=== PATIENT | male | born 1955 | race Caucasian/White ===

== ENCOUNTER → 2017-12-25 | Day surgery (SDC) | payer BC ==
[2017-12-20 09:32] LABS: BASOPHILS % 0.2 % (0.0-1.0); EOSINOPHILS # (AUTO) 0.2 (0.0-0.4); EOSINOPHILS % 4.1 % (0.0-6.0); HEMATOCRIT 37.7 % (38.2-49.6); HEMOGLOBIN 13.1 g/dL (14.0-18.0); LYMPHOCYTES # (AUTO) 1.8 (1.0-3.2); LYMPHOCYTES % 30.7 % (18.0-39.1); MEAN CORPUSCULAR HEMOGLOBIN 30.4 pg (28-32); MEAN CORPUSCULAR HGB CONC 34.7 g/dL (31-35); MEAN CORPUSCULAR VOLUME 87.5 fL (81-99); MONOCYTES # (AUTO) 0.7 (0.2-0.8); MONOCYTES % 11.6 % (4.4-11.3); NEUTROPHILS # (AUTO) 3.1 (2.1-6.9); NEUTROPHILS % 53.2 % (38.7-80.0); PLATELET COUNT 245 x10e3/uL (140-360); RED BLOOD COUNT 4.31 x10e6/uL (4.3-5.7); RED CELL DISTRIBUTION WIDTH 12.6 % (11.7-14.4)
[~2017-12-25] MED LIST: ASPIR 8181 MG PO; ATORVASTATIN CA20 MG PO; CARVEDILOL12.5 MG PO; DECARA25000 UNIT PO; EPHEDRINE SULFATE INJ 50 MG/10 ML SYR ONE; FENTANYL CITRATE/PF 100MCG/2 ML INJ ONE; LISINOPRIL-HCT1 EACH PO; LORAZEPAM2 MG PO; METFORMIN HCL500 MG PO; MIDAZOLAM HCL 2 MG/2 ML VIAL ONE; PHENYLEPHRINE HCL 1% 10 MG/ML VIAL ONE; PROAIR HFA INH8.5 GM INH; PROPOFOL IV EMULSION 10 MG/ML 50 ML VIAL ONE; RANEXA500 MG PO; TRAZODONE HCL150 MG PO
--- OUTSIDE RECORDS SUMMARY | 2017-12-25 06:02 | XMS REPORT | Clinical Summary ---
Author Author [facility] Organization [facility] Address Unknown Phone Unavailable Care Team Providers Care Aircraft Worker Name Role Phone Francia Dennis MD PCP Unavailable Allergies No Known Allergies Current Medications Prescription Sig. Disp. Refills Start End Date Status Date traZODone (DESYREL) 150 Take 150 mg by mouth Active MG tablet nightly. LORAZepam (ATIVAN) 2 MG Take 2 mg by mouth every Active tablet 6 (six) hours as needed for anxiety. nitroglycerin (NITROSTAT) Place 0.4 mg under the Active 0.4 MG SL tablet tongue every 5 (five) minutes as needed for chest pain. aspirin 81 mg chewable Chew 1 tablet every day Active tablet by oral route. lisinopril-hydrochlorothi Take 1 tablet every day Active azide by oral route. (PRINZIDE,ZESTORETIC) 20-12.5 mg per tablet albuterol (PROAIR HFA) 90 Inhale 2 puffs every 4 Active mcg/actuation inhaler hours by inhalation route. carvedilol (COREG) 12.5 Take 1 tablet twice a day Active MG tablet by oral route. metFORMIN (GLUCOPHAGE) Take 1 tablet twice a day Active 500 MG tablet by oral route. atorvastatin (LIPITOR) 20 TAKE 1 TABLET BY MOUTH 90 tablet 3 10/16/19 Active MG tablet EVERY DAY 17 CHANTIX STARTING MONTH 02/09/20 Active BOX 0.5 mg (11)- 1 mg 17 (42) tablet cholecalciferol, vitamin Take 50,000 Units by Active D3, 50,000 unit capsule mouth 2 (two) times a week. lisinopril Take 20 mg by mouth 03/05/20 Discontin (PRINIVIL,ZESTRIL) 20 MG daily. 17 ued tablet HYDROcodone-acetaminophen Take 1 tablet by mouth 03/05/20 Discontin (NORCO 10-325) 10-325 mg every 6 (six) hours as 17 ued per tablet needed for moderate pain. albuterol (PROVENTIL Inhale 2 puffs every 6 03/05/20 Discontin HFA;VENTOLIN HFA) 90 (six) hours as needed for 17 ued mcg/actuation inhaler wheezing. LORAZepam (ATIVAN) 0.5 MG Take 1 tablet twice a day 03/05/20 Discontin tablet by oral route. 17 ued fenofibrate micronized Take 1 capsule every day 03/05/20 Discontin (ANTARA) 130 MG capsule by oral route. 17 ued acetaminophen-codeine 06/26/20 03/05/20 Discontin (TYLENOL #3) 300-30 mg 16 17 ued per tablet tamsulosin (FLOMAX) 0.4 TAKE ONE CAPSULE BY MOUTH 25 capsule 0 05/08/20 Discontin mg capsule,extended EVERY DAY 16 17 ued release 24hrIndications: Left ureteral stone sulfamethoxazole-trimetho Take 1 tablet by mouth 1 tablet 0 02/16/20 02/16/20 prim (BACTRIM) 400-80 mg once for 1 dose. 17 17 per tablet cephalexin (KEFLEX) 500 Take 1 capsule (500 mg 14 capsule 0 05/04/20 05/04/20 Discontin MG capsule total) by mouth 2 (two) 17 17 ued times a day for 7 days. cephalexin (KEFLEX) 500 Take 1 capsule (500 mg 14 capsule 0 05/04/20 05/04/20 Discontin MG capsule total) by mouth 2 (two) 17 17 ued times a day for 7 days. cephalexin (KEFLEX) 500 Take 1 capsule (500 mg 10 capsule 0 05/04/20 05/09/20 MG capsule total) by mouth 2 (two) 17 17 times a day for 5 days. cephalexin (KEFLEX) 500 Take 1 capsule (500 mg 10 capsule 0 05/04/20 05/08/20 Discontin MG capsule total) by mouth 2 (two) 17 17 ued times a day for 5 days. acetaminophen-codeine Take 1 tablet by mouth 30 tablet 0 05/08/20 (TYLENOL WITH CODEINE #3) every 4 (four) hours as 17 17 300-30 mg per tablet needed for moderate pain for up to 5 days. docusate sodium (COLACE) Take 1 capsule (100 mg 60 capsule 0 05/08/20 06/07/20 100 MG capsule total) by mouth 2 (two) 17 17 times a day for 30 days. sulfamethoxazole-trimetho Take 1 tablet by mouth 2 10 tablet 0 05/13/20 prim (BACTRIM DS) 800-160 (two) times a day for 5 17 17 mg per tablet days. traMADol (ULTRAM) 50 mg Take 1 tablet (50 mg 30 tablet 0 05/09/20 Discontin tablet total) by mouth every 6 17 17 ued (six) hours as needed for moderate pain for up to 5 days. traMADol (ULTRAM) 50 mg Take 1 tablet (50 mg 30 tablet 0 05/09/20 tablet total) by mouth every 6 17 17 (six) hours as needed for moderate pain for up to 5 days. docusate sodium (COLACE) Take 1 capsule (100 mg 60 capsule 0 07/25/20 08/24/19 100 MG capsule total) by mouth 2 (two) 17 18 times a day for 30 days. acetaminophen-codeine Take 1-2 tablets by mouth 30 tablet 0 07/25/20 08/08/20 (TYLENOL WITH CODEINE #3) every 6 (six) hours as 17 17 300-30 mg per tablet needed for moderate pain for up to 14 days. sulfamethoxazole-trimetho Take 1 tablet by mouth 2 10 tablet 0 07/25/20 Discontin prim (BACTRIM DS) 800-160 (two) times a day for 5 17 17 ued mg per tablet days. ciprofloxacin (CIPRO) 500 Take 1 tablet (500 mg 10 tablet 0 07/25/20 07/25/20 Discontin MG tablet total) by mouth 2 (two) 17 17 ued times a day for 5 days. acetaminophen-codeine Take 1 tablet by mouth 20 tablet 0 07/25/20 (TYLENOL WITH CODEINE #3) every 4 (four) hours as 17 17 300-30 mg per tablet needed for moderate pain for up to 20 doses. ciprofloxacin (CIPRO) 500 Take 1 tablet (500 mg 14 tablet 0 07/25/20 08/01/20 MG tablet total) by mouth 2 (two) 17 17 times a day for 7 days. Active Problems Problem Noted Date Erectile dysfunction 07/24/2017 SYDNIE (stress urinary incontinence), male 05/08/2017 Prostate cancer 01/04/2017 SYDNIE (stress urinary incontinence), male 01/04/2017 Erectile dysfunction following radical prostatectomy 01/04/2017 Left ureteral stone 06/12/2016 Encounters Date Type Specialty Care Team Description 07/30/2017 Telephone Urology Arsh Marin MD 07/24/2017 [facility] Arsh Marin MD - Encounter 07/25/2017 07/24/2017 Procedure Pass Urology 07/24/2017 Surgery UrologArsh Mtz MD REMOVAL AND REINSERTION, PENILE PROSTHESIS, INFLATABLE 07/23/2017 Anesthesia Urology Jose F Horton MD Event 06/21/2017 Orders Only Urology Natalie Nieto MA Malfunction of penile prosthesis, initial encounter (Primary Dx) 06/07/2017 Office Visit Urology Arsh Marin MD Prostate cancer ( Primary Dx); Erectile dysfunction following radical prostatectomy 06/06/2017 Office Visit Semaj Vela MD SYDNIE (stress urinary incontinence), male (Primary Dx) 05/08/2017 [facility] Semaj Hays MD Female genuine stress - Encounter incontinence 05/09/2017 05/08/2017 Procedure Pass Urology 05/08/2017 Surgery Semaj Vela MD REMOVAL, ARTIFICIAL SPHINCTER AND REPLACE 05/04/2017 Orders Only Urology Sylvie Berman MD 05/04/2017 Telephone Semaj Vela MD 05/04/2017 Orders Only Semaj Vela MD 05/01/2017 Transcribe Semaj Vela MD Female stress Orders incontinence (Primary Dx) 03/26/2017 Orders Only Semaj Vela MD 03/06/2017 Anesthesia Urology Mary Kate Moreno Event JOSLYN King 02/15/2017 Procedure visit Semaj Vela MD SYDNIE (stress urinary incontinence), male 02/07/2017 Office Visit Semaj Vela MD SYDNIE (stress urinary incontinence), male (Primary Dx) 01/25/2017 Lab Lab Genaro Rasheed MD Prostate cancer 01/04/2017 Office Visit Urology Genaro Rasheed MD Erectile dysfunction following radical prostatectomy (Primary Dx); SYDNIE (stress urinary incontinence), male; Prostate cancer after 12/24/2016 Immunizations Name Dates Previously Given Next Due FLUCELVAX QUAD PF (0.5mL 05/09/2017 syringe) Family History Medical History Relation Name Comments Breast cancer Father Cancer Father Diabetes Father Gallbladder disease Father Heart disease Father Leukemia Father Anxiety disorder Mother Heart disease Mother Hypertension Mother Relation Name Status Comments Father Alive Mother Alive Social History Tobacco Use Types Packs/Day Years Used Date Former Smoker Cigarettes 47 Quit: 01/2017 Smokeless Tobacco: Never Used Sex Assigned at Date Recorded Not on file Last Filed Vital Signs Vital Sign Reading Time Taken Blood Pressure 109/58 07/25/2017 7:30 AM [facility] Pulse 82 07/25/2017 7:30 AM [facility] Temperature 37.1 C (98.8 F) 07/25/2017 7:30 AM [facility] Respiratory Rate 21 07/25/2017 7:30 AM [facility] Oxygen Saturation 94% 07/25/2017 7:30 AM [facility] Inhaled Oxygen - - Concentration Weight 90.5 kg (199 lb 7 oz) 07/24/2017 6:15 AM [facility] Height 182.9 cm (6') 07/24/2017 6:15 AM [facility] Body Mass Index 27.05 07/24/2017 6:15 AM [facility] Plan of Treatment Health Maintenance Due Date Last Done Comments COLONOSCOPY 2007 SHINGRIX VACCINE (#1) 2007 ZOSTER VACCINE 2017 INFLUENZA VACCINE 03/20/2018 05/09/2017 Implants Implanted Type Area Creative Services Intern Device Expiration Model / Identifier Date Serial / Lot Kit Accy Artfcl Urny Spnctr W/ Iz Neurosurgi N/A: N/A SWEDISH 2021 [id number] Ams 800 - [id number] [employer] SYSTEMS / Implanted: 05/08/2017 (Quantity not Implants INC / on file) [id number] Package Deactivation - [id number] Urological N/A: N/A SWEDISH 2019 [id number] / Implanted: 05/08/2017 (Quantity not Implants MEDICAL SYSTEMS / on file) or Sets INC [id number] Pump Cntrl W/ Inhibizone Urny Sys Urological N/A: N/A SWEDISH 2017 [id number] / Ams 800 - [id number] Implants MEDICAL SYSTEMS / Implanted: 05/08/2017 (Quantity not or Sets INC [id number] on file) Balloon Press Regltng Ams 800 Urny Urological N/A: N/A SWEDISH 04/06 [id number] / Cntrl Sys 61-70cm - [id number] Implants MEDICAL SYSTEMS / Implanted: 05/08/2017 (Quantity not or Sets INC [id number] on file) Prosthesis Urny Ams 800 Belt Spnctr Urological N/A: N/A SWEDISH [id number] / W/ Inhibizone Fgs 4cm - [id number] Implants MEDICAL SYSTEMS / Implanted: 05/08/2017 (Quantity not or Sets INC [id number] on file) Kit Accy Infltbl Penile Ams 700 - Urological SWEDISH 06/06/2022 [id number] / [id number] Implants MEDICAL SYSTEMS / Implanted: Qty: 1 on 07/24/2017 by or Sets INC [id number] Arsh Marin MD Implant Penile Rsvr Ams 700 Ms Urological SWEDISH 03/19/2019 [id number] / Prcnctd W/ Iz 65ml - [id number] Implants MEDICAL SYSTEMS / Implanted: Qty: 1 on 07/24/2017 by or Sets INC [id number] Arsh Marin MD Implant Penile Ams 700 Cx Ms Urological SWEDISH 05/21/2019 [id number] / Prcnctd Pnscrtl Aprch 18cm - Implants MEDICAL SYSTEMS / [id number] or Sets INC [id number] Implanted: Qty: 1 on 07/24/2017 by Arsh Marin MD Implant Penile Ams Spectra Cnclable Urological SWEDISH 11/24/2021 [id number] / Rte 2cm - [id number] Implants MEDICAL SYSTEMS / Implanted: Qty: 1 on 07/24/2017 by or Sets INC [id number] Arsh Marin MD Procedures Procedure Name Priority Date/Time Associated Diagnosis Comments ANESTHESIA INTUBATION Routine 07/24/2017 10:05 AM [facility] Procedure Note - Alem Ferraro CRNA - 07/24/2017 10:05 AM [facility] Airway Performed by: ALEM FERRARO Authorized by: JOSE F HORTON REMOVAL AND REINSERTION, 07/24/2017 Mechanical complication PENILE PROSTHESIS, 7:30 AM [facility] due to prosthetic INFLATABLE reconstruction of vas deferens, initial encounter Special Needs POSSIBLE EXTENDED RECOVERY PA AN ELECTIVE Routine 05/08/2017 ENDOTRACHEAL AIRWAY 8:19 AM CDT Procedure Note - Dulce Dalton, PROPOSAL DIRECTOR - 05/08/2017 8:16 AM CDT Airway Date/Time: 05/08/2017 7:53 AM Performed by: DULCE DALTON Authorized by: JOSE F HORTON Location: OR Urgency: Elective Difficult Airway: No Resident/C RNA: DULCE DALTON Preoxygena nusrat with 100% O2: Yes C-spine Precaution s Maintained Throughout : Yes Mask Ventilatio n: Easy mask (oral airway) Final Airway Type: Endotrache al airway Final Endotrache al Airway: ETT Technique Used: Direct laryngosco py Devices/Me thods Used in Placement: Intubatin g stylet Blade Type: De La Cruz Laryngosco pe Blade/Vide olaryngosc ope Blade Size: 2 ETT Size (mm): 8.0 Measured from: Teeth ETT to Teeth (cm): 23 Placement Verified by: CO2 detection, direct visualizat ion and equal breath sounds Laryngosco pic view: Grade IIb - view of arytenoids or posterior of glottis only Rapid Sequence Induction (RSI): No Modified RSI: No Number of Attempts at Approach: 1 Atraumati c, lips and teeth intact and unchanged REMOVAL, ARTIFICIAL 05/08/2017 Female genuine stress SPHINCTER AND REPLACE 7:30 AM CDT incontinence Case Notes ROSAS R/S 02/26/17 TLM, @1026 LOULOU R/S FROM 04/24 TO 05/08- 7TW FL URETHROGRAM URO Routine 02/15/2017 SYDNIE (stress urinary 3:55 PM CDT incontinence), male UROFLOWMETRY COMPLEX Routine 02/15/2017 SYDNIE (stress urinary (F-P-F) 3:55 PM CDT incontinence), male VPS INTRA ABD COMPLEX Routine 02/15/2017 SYDNIE (stress urinary (LPP) 3:55 PM CDT incontinence), male VPS INTERMED Routine 02/15/2017 SYDNIE (stress urinary (FR,EMG,PVES-PABD: PDET) 3:55 PM CDT incontinence), male CYSTOMETROGRAM COMPLEX Routine 02/15/2017 SYDNIE (stress urinary (CMG-PVES) 3:55 PM CDT incontinence), male after 12/24/2016 Results * POC glucose (07/25/2017 7:28 AM) Only the most recent of 11 results within the time period is included. Component Value Ref Range POC glucose 114 (H) 65 - 99 mg/dL Comment: [facility] Notified RN Meter ID: [id number] Idea Man: Vasu Dozier Specimen Performing Laboratory [facility] DEPARTMENT OF PATHOLOGY AND GENOMIC MEDICINE [address] [place] [id number] * Estimated GFR (07/24/2017 6:24 AM) Component Value Ref Range GFR Non Af Amer 86 mL/min/1.73 m2 GFR Af Amer >90 mL/min/1.73 m2 Comment: Chronic kidney disease: <60 mL/min/1.73m2 Kidney failure: <15 mL/min/1.73m2 The estimated GFR is calculated from the IDMS-traceable Modification of Diet in Renal Disease Equation. The accuracy of the calculation is poor when the creatinine is normal. Calculated values >90 mL/min/1.73m2 are not reported. This equation has not been validated in children (<18 years), women, the elderly (>70 years), or ethnic groups other than Caucasians and Americans. Specimen Performing Laboratory Plasma specimen [facility] DEPARTMENT OF PATHOLOGY AND GENOMIC MEDICINE [address] [place] [phone] * Comprehensive metabolic panel (07/24/2017 6:24 AM) Component Value Ref Range Sodium 141 135 - 148 mEq/L Potassium 4.0 3.5 - 5.0 mEq/L Chloride 100 98 - 112 mEq/L CO2 30 24 - 31 mEq/L Anion gap 11 7 - 15 mEq/L Comment: Starting from November , anion gap calculation no longer incorporates potassium. Please note the change. BUN 13 8 - 23 mg/dL Creatinine 0.9 0.7 - 1.2 mg/dL Glucose 109 (H) 65 - 99 mg/dL Calcium 9.2 8.8 - 10.2 mg/dL Protein 7.3 6.3 - 8.3 g/dL Comment: 4.6-7.0 g/dL 1 week 4.4-7.6 g/dL 7 months-1year 5.1-7.3 g/dL 1-2 years 5.6-7.5 g/dL >3 years 6.0-8.0 g/dL 18-150 6.3-8.3 g/dL Albumin 3.8 3.5 - 5.0 g/dL A/G ratio 1.1 0.7 - 3.8 Alkaline phosphatase 91 40 - 129 U/L AST 22 10 - 50 U/L ALT 27 5 - 50 U/L Total bilirubin 0.4 0.0 - 1.2 mg/dL Specimen Performing Laboratory Plasma specimen [facility] DEPARTMENT OF PATHOLOGY AND GENOMIC MEDICINE [address] [place] [phone] * Urinalysis screen and microscopy, with reflex to culture (07/24/2017 6:05 AM) Component Value Ref Range Specimen site Random void Color, UA Yellow Appearance, UA Clear Specific gravity, UA 1.023 1.001 - 1.035 pH, UA 5.0 5.0 - 8.5 Protein, UA Negative Negative Glucose, UA Negative Negative Ketones, UA Negative Negative Bilirubin, UA Negative Negative Blood, UA Negative Negative Nitrite, UA Negative Negative Urobilinogen, UA <2.0 <2.0 Leukocyte esterase, UA Negative Negative Epithelial cells, UA <1 /HPF WBC, UA 3 (H) 0 - 1 /HPF RBC, UA 1 0 - 1 /HPF Bacteria, UA None seen None seen Yeast, UA None seen Yeast with pseudohyphae, None seen UA Hyaline casts, UA 3 /LPF Specimen Performing Laboratory Urine [facility] DEPARTMENT OF PATHOLOGY AND [facility] MEDICINE [address] [place] [phone] * CBC with platelet and differential (07/24/2017 6:05 AM) Component Value Ref Range WBC 6.33 4.50 - 11.00 k/uL RBC 4.44 4.40 - 6.00 m/uL HGB 13.5 (L) 14.0 - 18.0 g/dL HCT 39.0 (L) 41.0 - 51.0 % MCV 87.8 82.0 - 100.0 fL MCH 30.4 27.0 - 34.0 pg MCHC 34.6 31.0 - 37.0 g/dL RDW - SD 40.4 37.0 - 55.0 fL MPV 10.1 8.8 - 13.2 fL Platelet count 200 150 - 400 k/uL Nucleated RBC 0.00 /100 WBC Neutrophils 50.2 39.0 - 69.0 % Lymphocytes 34.4 25.0 - 45.0 % Monocytes 11.2 (H) 0.0 - 10.0 % Eosinophils 3.6 0.0 - 5.0 % Basophils 0.3 0.0 - 1.0 % Immature granulocytes 0.3Comment: "Immature granulocytes" 0.0 - 1.0 % (promyelocytes, myelocytes, metamyelocytes) Specimen Performing Laboratory [facility] DEPARTMENT OF PATHOLOGY AND GENOMIC MEDICINE [address] [place], [place] [id number] * Urine culture (07/24/2017 6:05 AM) Only the most recent of 2 results within the time period is included. Component Value Ref Range Urine culture SEE COMMENTComment: Bacteriuria screen negative. Specimen Performing Laboratory [facility] DEPARTMENT OF PATHOLOGY AND [place] [id number] * PT and PTT (07/09/2017 11:28 AM) Component Value Ref Range PTT 25 22 - 34 sec Comment: This test has not been validated for monitoring unfractionated heparin therapy. For testing that is validated for this type of therapy, please refer to the Heparin Anti-Xa assay (test code 09016). For additional information, please refer to http://education.[employer].Vigilent/faq/CEG430 (This link is being provided for informational/educational purposes only.) INR 1.0 Comment: Reference Range 0.9-1.1 Moderate-intensity Warfarin Therapy 2.0-3.0 Higher-intensity Warfarin Therapy 3.0-4.0 Prothrombin time 10.4 9.0 - 11.5 sec Specimen Performing Laboratory [facility] Narrative FASTING:YES FASTING: YES * POC urinalysis dipstick (06/06/2017 9:10 AM) Only the most recent of 2 results within the time period is included. Component Value Ref Range Color urine, POC Yellow Clarity urine, POC Clear Glucose urine, POC Negative Negative Bilirubin urine, POC Negative Negative Ketones urine, POC Negative Negative Specific gravity urine, 1.010 1.005 - 1.030 POC Blood urine, POC Negative Negative pH urine, POC 6.5 5.0, 5.5, 6.0, 6.5, 7.0, 7.5, 8.0, 8.5 Protein urine, POC Negative Negative Urobilinogen urine, POC <2.0 <2.0 Nitrite urine, POC Negative Negative Leukocyte esterase urine, Negative Negative POC Specimen Performing Laboratory Urine * Surgical pathology request (05/08/2017 12:05 PM) Component Value Ref Range Surgical pathology report See link below for PDF Lab Report Specimen Performing Laboratory [facility] DEPARTMENT OF PATHOLOGY AND GENOMIC MEDICINE [address] [place] [phone] * Urinalysis, routine with microscopic examination on positives (03/26/2017 2: 11 PM) Component Value Ref Range Specific gravity, urine 1.017 1.005 - 1.030 pH, urine 6.0 5.0 - 7.5 Color, UA Yellow Yellow Appearance Clear Clear WBC esterase, urine Trace (A) Negative Protein, UA Negative Negative/Trace Glucose, urine Negative Negative Ketones, UA Negative Negative Occult blood, urine Negative Negative Bilirubin, UA Negative Negative Urobilinogen, UA 0.2 0.2 - 1.0 mg/dL Nitrite, UA Negative Negative Microscopic examination See below:Comment: Microscopic was indicated and was performed. Specimen Performing Laboratory [facility] Narrative Performed at:[address] [place], [place] [id number] Machine Paint Mixer: Doyle Dick MD, Phone:[phone] * Microscopic Examination (03/26/2017 2:11 PM) Component Value Ref Range WBC, UA 0-5 0 - 5 /hpf RBC, UA 0-2 0 - 2 /hpf Epithelial cells (non 0-10 0 - 10 /hpf renal) Mucus, UA Present Not Estab. Bacteria, UA None seen None seen/Few Specimen Performing Laboratory [facility] Narrative Performed at:[address] [place], [place] [id number] Machine Paint Mixer: Doyle Dick MD, Phone:[phone] * FL URETHROGRAM URO (02/15/2017 3:55 PM) * Uroflowmetery complex (F-P-F) (02/15/2017 3:55 PM) * VPS intra abd complex (LPP) (02/15/2017 3:55 PM) * VPS intermed (FR, EMG, Pves-Pabd: pdet) (02/15/2017 3:55 PM) * Prostate specific antigen (01/25/2017 7:18 AM) Component Value Ref Range PSA <0.1 < OR=4.0 ng/mL Comment: The total PSA value from this assay system is standardized against the WHO standard. The test result will be approximately 20% lower when compared to the equimolar-standardized total PSA (Ricardo Pratt). Comparison of serial PSA results should be interpreted with this fact in mind. This test was performed using the Siemens chemiluminescent method. Values obtained from different assay methods cannot be used interchangeably. PSA levels, regardless of value, should not be interpreted as absolute evidence of the presence or absence of disease. Specimen Performing Laboratory Blood [facility] after 12/24/2016 Insurance Payer Benefit Subscriber ID Type Phone Address Plan / Group BCBS BCBS xxxxxxxxxxxxxxx PPO CHOICE PPO/NIRMAL MADRID PPO
== END | disposition home or self-care (01) ==
LOC: OR 05:59
PROVIDERS: ATTEND Internal Medicine Gastroenterology
DX: Z12.11 Encounter for screening for malignant neoplasm of colon (principal); D12.2 Benign neoplasm of ascending colon; D12.4 Benign neoplasm of descending colon; D12.3 Benign neoplasm of transverse colon; K29.00 Acute gastritis without bleeding; K29.80 Duodenitis without bleeding; K57.30 Diverticulosis of large intestine without perforation or abscess without bleeding; K44.9 Diaphragmatic hernia without obstruction or gangrene; K64.8 Other hemorrhoids; K59.00 Constipation, unspecified; I25.10 Atherosclerotic heart disease of native coronary artery without angina pectoris; I10 Essential (primary) hypertension; E78.5 Hyperlipidemia, unspecified; J44.9 Chronic obstructive pulmonary disease, unspecified; E11.9 Type 2 diabetes mellitus without complications; F41.9 Anxiety disorder, unspecified; G47.33 Obstructive sleep apnea (adult) (pediatric); I25.2 Old myocardial infarction; Z01.810 Encounter for preprocedural cardiovascular examination; Z01.812 Encounter for preprocedural laboratory examination; Z79.82 Long term (current) use of aspirin; Z79.84 Long term (current) use of oral hypoglycemic drugs; Z85.46 Personal history of malignant neoplasm of prostate; Z95.810 Presence of automatic (implantable) cardiac defibrillator; Z90.79 Acquired absence of other genital organ(s); Z96.0 Presence of urogenital implants; Z95.5 Presence of coronary angioplasty implant and graft; Z86.19 Personal history of other infectious and parasitic diseases; Z80.0 Family history of malignant neoplasm of digestive organs
CPT/HCPCS: 36415 ×2; 43239; 45384; 82948; 85025; 93005; J2250; J2370

== ENCOUNTER → 2019-03-04 | Day surgery (SDC) | payer BC ==
[2019-02-28 12:35] LABS: INR 0.84; PARTIAL THROMBOPLASTIN TIME 27.2 seconds (23.8-35.5)
[2019-02-28 12:41] LABS: BASOPHILS % 0.2 % (0.0-1.0); EOSINOPHILS # (AUTO) 0.3 (0.0-0.4); EOSINOPHILS % 4.8 % (0.0-6.0); HEMATOCRIT 37.7 % (38.2-49.6); HEMOGLOBIN 12.9 g/dL (14.0-18.0); LYMPHOCYTES # (AUTO) 1.6 (1.0-3.2); MEAN CORPUSCULAR HEMOGLOBIN 30.6 pg (28-32); MEAN CORPUSCULAR HGB CONC 34.2 g/dL (31-35); MEAN CORPUSCULAR VOLUME 89.3 fL (81-99); MONOCYTES # (AUTO) 0.6 (0.2-0.8); MONOCYTES % 10.9 % (4.4-11.3); NEUTROPHILS # (AUTO) 3.1 (2.1-6.9); NEUTROPHILS % 54.9 % (38.7-80.0); PLATELET COUNT 189 x10e3/uL (140-360); RED BLOOD COUNT 4.22 x10e6/uL (4.3-5.7); RED CELL DISTRIBUTION WIDTH 12.7 % (11.7-14.4)
[2019-02-28 13:10] LABS: ALANINE AMINOTRANSFERASE 24 IU/L (0-55); ALBUMIN 3.5 g/dL (3.5-5.0); ALBUMIN/GLOBULIN RATIO 1.2 (0.8-2.0); ALKALINE PHOSPHATASE 94 IU/L (40-150); BLOOD UREA NITROGEN 14 mg/dL (7-26); BUN/CREATININE RATIO 16 (6-25); CALCIUM 9.3 mg/dL (8.4-10.2); CARBON DIOXIDE 26 mmol/L (22-29); CHLORIDE 105 mmol/L (98-107); CREATININE, SERUM 0.85 mg/dL (0.72-1.25); EST GLOMERULAR FILTRATION RATE > 60 ML/MIN (60-); GLUCOSE 108 mg/dL (74-118); SODIUM 141 mmol/L (136-145)
[~2019-03-04] MED LIST changes: +BEVESPI INH; +BUPROPION HCL75 MG PO; +CLONAZEPAM1 MG PO; -EPHEDRINE SULFATE INJ 50 MG/10 ML SYR ONE; +ISOSORBIDE MONO30 MG PO; +NEXIUM40 MG PO; -PHENYLEPHRINE HCL 1% 10 MG/ML VIAL ONE
--- OUTSIDE RECORDS SUMMARY | 2019-03-04 07:14 | XMS REPORT | Clinical Summary ---
Author Author [facility] Organization [facility] Address Unknown Phone Unavailable Care Team Providers Care Paratransit Operator Name Role Phone Sherry Dennis MD PCP Unavailable Allergies No Known Allergies Medications End Date Status Medication Sig Dispensed Refills Start Date Active traZODone (DESYREL) 150 Take 150 mg 0 MG tablet by mouth nightly. Active LORAZepam (ATIVAN) 2 MG Take 2 mg by 0 tablet mouth every 6 (six) hours as needed for anxiety. Active nitroglycerin (NITROSTAT) Place 0.4 mg 0 0.4 MG SL tablet under the tongue every 5 (five) minutes as needed for chest pain. Active aspirin 81 mg chewable Chew 1 tablet 0 tablet every day by oral route. Active lisinopril-hydrochlorothi Take 1 tablet 0 azide every day by (PRINZIDE,ZESTORETIC) oral route. 20-12.5 mg per tablet Active albuterol (PROAIR HFA) 90 Inhale 2 0 mcg/actuation inhaler puffs every 4 hours by inhalation route. Active carvedilol (COREG) 12.5 Take 1 tablet 0 MG tablet twice a day by oral route. Active metFORMIN (GLUCOPHAGE) Take 1 tablet 0 500 MG tablet twice a day by oral route. Active atorvastatin (LIPITOR) 20 TAKE 1 TABLET 90 tablet 3 MG tablet BY MOUTH 7 EVERY DAY Active CHANTIX STARTING MONTH 0 BOX 0.5 mg (11)- 1 mg 7 (42) tablet Active cholecalciferol, vitamin Take 50,000 0 D3, 50,000 unit capsule Units by mouth 2 (two) times a week. Active Problems Problem Noted Date Erectile dysfunction 07/24/2017 SYDNIE (stress urinary incontinence), male 05/08/2017 Prostate cancer 01/04/2017 SYDNIE (stress urinary incontinence), male 01/04/2017 Erectile dysfunction following radical prostatectomy 01/04/2017 Left ureteral stone 06/12/2016 Immunizations Name Dates Previously Given Next Due FLUCELVAX QUAD PF (0.5mL 05/09/2017 syringe) Family History Medical History Relation Name Comments Breast cancer Father Cancer Father Diabetes Father Gallbladder disease Father Heart disease Father Leukemia Father Anxiety disorder Mother Heart disease Mother Hypertension Mother Relation Name Status Comments Father Alive Mother Alive Social History Date Tobacco Use Types Packs/Day Years Used Quit: 01/2017 Former Smoker Cigarettes 47 Smokeless Tobacco: Never Used Sex Assigned at Date Recorded Not on file Industry Job Start Date Occupation Not on file Not on file Not on file Travel End Travel History Travel Start No recent travel history available. Last Filed Vital Signs Not on file Plan of Treatment Health Maintenance Due Date Last Done Comments COLONOSCOPY SCREENING 2007 SHINGLES VACCINES (#1) 2007 INFLUENZA VACCINE 03/20/2019 05/09/2017 Implants Device Identifier Shelf Expiration Date Model / Serial / Lot Implanted Type Area Manufactur er 04/13/2022 [id number] / [id number] Kit Accy Artfcl Urny Spnctr W/ Iz Neurosurgi N/A: N/A TOGOLESE Ams 800 - [id number] MEDICAL Implanted: 05/08/2017 (Quantity not Implants SYSTEMS on file) INC 03/29/2020 [id number] / / [id number] Package Deactivation - [id number] Urological N/A: N/A TOGOLESE Implanted: 05/08/2017 (Quantity not Implants MEDICAL on file) or Sets SYSTEMS INC 04/03/2018 [id number] / / [id number] Pump Cntrl W/ Inhibizone Urny Sys Urological N/A: N/A TOGOLESE Ams 800 - [id number] Implants MEDICAL Implanted: 05/08/2017 (Quantity not or Sets SYSTEMS on file) INC 04/06/2022 [id number] / / [id number] Balloon Press Regltng Ams 800 Urny Urological N/A: N/A TOGOLESE Cntrl Sys 61-70cm - [id number] Implants MEDICAL Implanted: 05/08/2017 (Quantity not or Sets SYSTEMS on file) INC 09/12/2017 [id number] / / [id number] Prosthesis Urny Ams 800 Belt Spnctr Urological N/A: N/A TOGOLESE W/ Inhibizone Fgs 4cm - [id number] Implants MEDICAL Implanted: 05/08/2017 (Quantity not or Sets SYSTEMS on file) INC 06/06/2022 [id number] / / [id number] Kit Accy Infltbl Penile Ams 700 - Urological TOGOLESE [id number] Implants MEDICAL Implanted: Qty: 1 on 07/24/2017 by or Sets SYSTEMS Arsh Marin MD INC 03/19/2019 [id number] / / [id number] Implant Penile Rsvr Ams 700 Ms Urological TOGOLESE Prcnctd W/ Iz 65ml - [id number] Implants MEDICAL Implanted: Qty: 1 on 07/24/2017 by or Sets SYSTEMS Arsh Marin MD INC 05/21/2019 [id number] / / [id number] Implant Penile Ams 700 Cx Ms Urological TOGOLESE Prcnctd Pnscrtl Aprch 18cm - Implants MEDICAL [id number] or Sets SYSTEMS Implanted: Qty: 1 on 07/24/2017 by INC Arsh Marin MD 11/24/2021 [id number] / / [id number] Implant Penile Ams Spectra Cnclable Urological TOGOLESE Rte 2cm - [id number] Implants MEDICAL Implanted: Qty: 1 on 07/24/2017 by or Sets SYSTEMS Arsh Marin MD INC Results Not on fileafter 03/03/2018 Insurance Type Payer Benefit Subscriber ID Effective Phone Address Plan / Dates Group PPO BCBS BCBS xxxxxxxxxxxxxxx 2015-[id number] CHOICE resent PPO/[employer] EMPL PPO Advance Directives Patient has advance care planning documents on file. For more information, ligia hurst contact: León Azevedo [address] [place] [address]
[2019-03-04 10:45] VITALS: BP 110/67
== END | disposition home or self-care (01) ==
LOC: OR 07:11
PROVIDERS: ATTEND Internal Medicine Gastroenterology
DX: K29.70 Gastritis, unspecified, without bleeding (principal); K25.9 Gastric ulcer, unspecified as acute or chronic, without hemorrhage or perforation; I10 Essential (primary) hypertension; E78.5 Hyperlipidemia, unspecified; J44.9 Chronic obstructive pulmonary disease, unspecified; E11.9 Type 2 diabetes mellitus without complications; I25.2 Old myocardial infarction; G47.33 Obstructive sleep apnea (adult) (pediatric); I25.10 Atherosclerotic heart disease of native coronary artery without angina pectoris; I48.91 Unspecified atrial fibrillation; F41.9 Anxiety disorder, unspecified; F17.210 Nicotine dependence, cigarettes, uncomplicated; Z01.810 Encounter for preprocedural cardiovascular examination; Z01.812 Encounter for preprocedural laboratory examination; Z79.82 Long term (current) use of aspirin; Z79.84 Long term (current) use of oral hypoglycemic drugs; Z85.46 Personal history of malignant neoplasm of prostate; Z86.19 Personal history of other infectious and parasitic diseases; Z95.810 Presence of automatic (implantable) cardiac defibrillator; Z95.5 Presence of coronary angioplasty implant and graft; Z80.0 Family history of malignant neoplasm of digestive organs; Z83.79 Family history of other diseases of the digestive system
CPT/HCPCS: 36415 ×2; 43239; 80053; 82948; 85025; 85610; 85730; 93005; J2250; J2704; J3010

== ENCOUNTER → 2020-11-30 | Day surgery (SDC) | payer BC ==
[2020-11-12 09:30] LABS: BASOPHILS % 0.3 % (0.0-1.0); EOSINOPHILS # (AUTO) 0.1 (0.0-0.4); EOSINOPHILS % 1.5 % (0.0-6.0); HEMOGLOBIN 12.7 g/dL (14.0-18.0); LYMPHOCYTES # (AUTO) 1.6 (1.0-3.2); LYMPHOCYTES % 23.4 % (18.0-39.1); MEAN CORPUSCULAR HGB CONC 33.4 g/dL (31-35); MEAN CORPUSCULAR VOLUME 89.6 fL (81-99); MONOCYTES # (AUTO) 0.7 (0.2-0.8); MONOCYTES % 10.6 % (4.4-11.3); NEUTROPHILS # (AUTO) 4.3 (2.1-6.9); NEUTROPHILS % 63.9 % (38.7-80.0); PLATELET COUNT 235 x10e3/uL (140-360); RED BLOOD COUNT 4.24 x10e6/uL (4.3-5.7); RED CELL DISTRIBUTION WIDTH 12.9 % (11.7-14.4)
[2020-11-12 09:45] LABS: INR 0.84
[2020-11-12 09:46] LABS: PARTIAL THROMBOPLASTIN TIME 26.3 seconds (23.8-35.5)
[2020-11-12 09:57] LABS: ALANINE AMINOTRANSFERASE 16 IU/L (0-55); ALBUMIN 3.5 g/dL (3.5-5.0); ALBUMIN/GLOBULIN RATIO 0.9 (0.8-2.0); ALKALINE PHOSPHATASE 102 IU/L (40-150); ANION GAP 13.8 mmol/L (8-16); BLOOD UREA NITROGEN 15 mg/dL (7-26); BUN/CREATININE RATIO 20 (6-25); CALCIUM 9.2 mg/dL (8.4-10.2); CARBON DIOXIDE 30 mmol/L (22-29); CHLORIDE 98 mmol/L (98-107); CREATININE, SERUM 0.74 mg/dL (0.72-1.25); EST GLOMERULAR FILTRATION RATE > 60 ML/MIN (60-); GLUCOSE 115 mg/dL (74-118); POTASSIUM 3.8 mmol/L (3.5-5.1); SODIUM 138 mmol/L (136-145)
[~2020-11-30] MED LIST changes: +ALBUTEROL2.5 MG/3 M NEB; +IPRAT-ALBUT 0.5-3 ML; +NITROGLYCERIN0.4 MG SL; +POLYETHYLENE GL17 GM PO; +PROPOFOL IV EMULSION 10 MG/ML 20 ML VIAL ONE; -PROPOFOL IV EMULSION 10 MG/ML 50 ML VIAL ONE
[2020-11-30 10:55] VITALS: BP 135/62
== END | disposition home or self-care (01) ==
LOC: OR 08:06
PROVIDERS: ATTEND Internal Medicine Gastroenterology
DX: K29.50 Unspecified chronic gastritis without bleeding (principal); D12.0 Benign neoplasm of cecum; D12.2 Benign neoplasm of ascending colon; D12.3 Benign neoplasm of transverse colon; D12.4 Benign neoplasm of descending colon; D12.5 Benign neoplasm of sigmoid colon; K44.9 Diaphragmatic hernia without obstruction or gangrene; K21.9 Gastro-esophageal reflux disease without esophagitis; K57.30 Diverticulosis of large intestine without perforation or abscess without bleeding; K64.8 Other hemorrhoids; G47.33 Obstructive sleep apnea (adult) (pediatric); J44.9 Chronic obstructive pulmonary disease, unspecified; I10 Essential (primary) hypertension; I25.10 Atherosclerotic heart disease of native coronary artery without angina pectoris; I48.91 Unspecified atrial fibrillation; E11.9 Type 2 diabetes mellitus without complications; F17.210 Nicotine dependence, cigarettes, uncomplicated; Z01.810 Encounter for preprocedural cardiovascular examination; Z01.812 Encounter for preprocedural laboratory examination; Z20.822 Contact with and (suspected) exposure to COVID-19; Z79.84 Long term (current) use of oral hypoglycemic drugs; Z79.82 Long term (current) use of aspirin; Z85.46 Personal history of malignant neoplasm of prostate; Z95.810 Presence of automatic (implantable) cardiac defibrillator; Z95.5 Presence of coronary angioplasty implant and graft
CPT/HCPCS: 36415 ×2; 43239; 45385; 80053; 82948; 85025; 85610; 85730; 93005; J2250; J2704; J3010; U0002